=== PATIENT | male | born 1940 | race Caucasian/White ===

== ENCOUNTER 2025-01-23 08:30 | Outpatient (CLI) | payer MEDICARE | END 2025-01-23 08:31 | disposition home or self-care (01) | LOC: BICULT 08:30 | PROVIDERS: ATTEND Internal Medicine Nephrology | DX: C61 Malignant neoplasm of prostate (principal); N17.9 Acute kidney failure, unspecified; N18.9 Chronic kidney disease, unspecified; I51.9 Heart disease, unspecified; M19.90 Unspecified osteoarthritis, unspecified site; N28.1 Cyst of kidney, acquired | CPT/HCPCS: 76770; 93975 ==

== ENCOUNTER 2025-03-13 05:56 | Day surgery (SDC) | payer MEDICARE ==
[2025-03-12 10:19] VITALS: BMI 28.5
[2025-03-13 07:33] LABS: #Basophils 0.03 10x3/uL (0.0-0.2); #Eosinophils 0.12 10x3/uL (0.0-0.7); #Monocytes 0.52 10x3/uL (0.11-0.59); #Neutrophils 3.63 10x3/uL (1.40-6.50); %Basophils 0.6 % (0.0-1.0); %Eosinophils 2.2 % (0.0-10.0); %Lymphocytes 19.9 % (21.0-51.0); %Monocytes 9.6 % (0.0-10.0); %Neutrophils 67.3 % (42.0-75.0); Hematocrit 36.3 % (42.0-52.0); Hemoglobin 12.3 g/dL (14.0-18.0); Mean Corpuscular Hemoglobin 32.3 pg (27.0-31.0); Mean Corpuscular Volume 95.3 fL (78.0-98.0); Platelet Count 144 10x3/uL (130-400); Red Blood Cell (RBC) Count 3.81 mill/uL (4.70-6.10); White Blood Cell (WBC) Count 5.39 10x3/uL (4.8-10.8)
[2025-03-13 07:45] LABS: ALT (SGPT) 14 U/L (Less than 45); AST (SGOT) 21 U/L (11-34); Albumin 3.6 g/dL (3.1-4.5); Alkaline Phosphatase 45 U/L (40-110); Anion Gap 10 mmol/L (10-20); BUN (Urea Nitrogen) 29 mg/dL (8.4-25.7); Bilirubin, Total 1.4 mg/dL (0.3-1.2); Calc. Creatinine Clearance 34 mL/min (70-130); Calcium 8.5 mg/dL (7.8-10.44); Carbon Dioxide 26 mmol/L (23-31); Chloride 108 mmol/L (98-107); Globulin 2.2 g/dL (2.4-3.5); Glucose 93 mg/dL (83-110); Potassium 4.0 mmol/L (3.5-5.1); Sodium 140 mmol/L (136-145)
[2025-03-13] MEDS ORDERED: Adenosine 6 mg (2 mL) VIAL ONE (11:04)
[2025-03-13] MEDS ORDERED: Nitroglycerin 50 MG/250 ML BOT 250 ML ONE (11:05)
[2025-03-13] MEDS ORDERED: Lidocaine 1% (PF) 30 ML VIAL ONE (11:05)
[2025-03-13] MEDS ORDERED: Heparin 10,000 UNITS/ 10 ML VIAL ONE (11:05)
[2025-03-13] MEDS ORDERED: Iopamidol 370 76% 100 ML VIAL ONE (11:11)
[2025-03-13] MEDS ORDERED: Aspirin Chewable 81 MG TAB ONE (14:02)
== END 2025-03-13 19:14 | disposition home or self-care (01) ==
LOC: SDC 05:56
PROVIDERS: ATTEND Internal Medicine Cardiovascular Disease
PROC: 4A023N7 Measurement of Cardiac Sampling and Pressure, Left Heart, Percutaneous Approach (ICD-10-PCS; principal; 2025-03-13)
DX: I42.9 Cardiomyopathy, unspecified (principal); I50.9 Heart failure, unspecified; I48.91 Unspecified atrial fibrillation; I25.10 Atherosclerotic heart disease of native coronary artery without angina pectoris; N18.30 Chronic kidney disease, stage 3 unspecified; Z88.0 Allergy status to penicillin; Z79.01 Long term (current) use of anticoagulants; Z79.899 Other long term (current) drug therapy
CPT/HCPCS: 71045; 80053; 85025; 85347 ×2; 93005; 93458; C1725 ×2; C1769; C1874; C1887; C1894; C9600; J0583; J1644; J2250; 36415; 92928; 93010; 99152; 99153; J0153; J3246; Q9967